=== PATIENT | male | born 1985 | race Caucasian/White ===

== ENCOUNTER 2016-06-30 16:50 | Emergency (ER) | payer OTHER ==
[2016-06-30 18:01] VITALS: BP 127/78
--- NOTE | 2016-06-30 19:05 | EDM.PDOC ---
ED HPI Trauma - General Chief Complaint: Upper Extremity Injury/Pain Stated Complaint: L SHOULDER INJURY Time Seen by Provider: 06/30/16 17:52 Source: Reports: Patient History Limitations: Reports: No limitations - History of Present Illness INITIAL COMMENTS - FREE TEXT/NARRATIVE: The patient presents with left shoulder pain. He got bucked off of his horse today. He did not hit his head and he did not hurt his neck. He has no chest pain or abdominal pain. He has no pelvic or leg pain. Occurred When: just prior to arrival Occurred Where: home Method of Injury: fall (Bucked off of his horse) Severity: moderate Pain/Injury Location: Reports: upper extremity, left (shoulder) Consciousness: Reports: no loss of consciousness Associated Symptoms: Reports: no other symptoms Allergies/ADRs: Allergies No Known Allergies Allergy (Verified 07/09/14 18:59) Home Medications: Ambulatory Orders Hydrocodone/Acetaminophen [Hydrocodon-Acetaminophen 5-325] 1 - 2 each PO Q6HR PRN #20 tablet 06/30/16 Past Medical History - Past Health History Medical/Surgical History: Denies Medical/Surgical History Social & Family History - Tobacco Use Smoking Status *Q: Never Smoker Years of Tobacco use: 8 Used Tobacco, but Quit: Yes Month Tobacco Last Used: march Second Hand Smoke Exposure: No - Caffeine Use Caffeine Use: Reports: Soda - Alcohol Use Days Per Week of Alcohol Use: 0 Number of Drinks Per Day: 4 Total Drinks Per Week: 0 - Recreational Drug Use Recreational Drug Use: No Review of Systems - Review of Systems Review Of Systems: See Below Constitutional: Reports: no symptoms Eyes: Reports: no symptoms Ears: Reports: no symptoms Nose: Reports: no symptoms Mouth/Throat: Reports: no symptoms Respiratory: Reports: No Symptoms Cardiovascular: Reports: no symptoms GI/Abdominal: Reports: No symptoms Genitourinary: Reports: no symptoms Musculoskeletal: Reports: other (Left shoulder pain) Skin: Reports: no symptoms Neurological: Reports: No Symptoms Trauma Exam - Physical Exam Exam: See Below Exam Limited By: No limitations General Appearance: Reports: alert, no apparent distress Head: Reports: atraumatic, normocephalic Ears: Reports: normal external exam Nose: Reports: normal inspection Neck: Reports: non-tender, normal alignment, normal inspection Respiratory Exam: Reports: no respiratory distress, lungs clear, normal breath sounds Cardiovascular: Reports: regular rate, rhythm, no edema, no murmur GI/Abdominal: Reports: soft, non tender, no organomegaly Extremities: Reports: other (Pain upon palpation and crepitus to the mid clavicle. Good sensation and pulses distally) Neurologic: Reports: no motor/sensory deficits, alert, oriented x 3 Course - Vital Signs Last Recorded V/S: Last Vital Signs Temp 97.2 F 06/30/16 17:59 Pulse 84 06/30/16 17:59 Resp 20 06/30/16 17:59 BP 127/78 06/30/16 17:59 Pulse Ox 97 06/30/16 17:59 - Orders/Labs/Meds Orders: Active Orders 24 hr Category Date Time Status CXR [Chest 2V] [CR] Stat Exams 06/30/16 17:55 Taken Clavicle Lt [CR] Stat Exams 06/30/16 17:55 Taken - Re-Assessments/Exams Free Text/Narrative Re-Assessment/Exam: 06/30/16 19:03 The CXR shows a left clavicle fracture but no rib injury and no pneumothorax. His clavicle x-ray shows a mid clavicle fracture with some displacement. I will get him in a sling and have him follow up with Dr Dixon. Departure - Departure Time of Disposition: 19:05 Disposition: Home, Self-Care 01 Condition: good Clinical Impression: Fracture of clavicle Qualifiers: Encounter type: initial encounter Clavicle location: shaft Fracture type: closed Fracture alignment: displaced Laterality: left Qualified Code(s): S42.022A - Displaced fracture of shaft of left clavicle, initial encounter for closed fracture Prescriptions: Hydrocodone/Acetaminophen [Hydrocodon-Acetaminophen 5-325] 1 - 2 each PO Q6HR PRN #20 tablet PRN Reason: Pain Referrals: Arvind Dixon MD [Physician] - 1 Week Forms: ED Department Discharge Additional Instructions: Ice your clavicle for 15 minutes every other hour while awake for 2 days. Wear the sling for comfort and follow up with Dr Dixon within 1 week. - My Orders Last 24 Hours: My Active Orders 06/30/16 17:55 CXR [Chest 2V] [CR] Stat Clavicle Lt [CR] Stat - Assessment/Plan Last 24 Hours: My Active Orders 06/30/16 17:55 CXR [Chest 2V] [CR] Stat Clavicle Lt [CR] Stat
--- NOTE | 2016-07-01 10:28 | CR ---
Left clavicle: Two views of the left clavicle were obtained. Comparison: No previous study. Slightly comminuted mid left clavicle fracture noted. Mild foreshortening is seen with displacement by over a shaft width. Acromioclavicular joint appears within normal limits. No additional bony abnormality is appreciated. Impression: 1. Left clavicle fracture as described above. Diagnostic code #3
--- NOTE | 2016-07-01 10:29 | CR ---
Chest: Two views of the chest were obtained. Comparison: No previous chest x-ray. Left clavicle fracture again noted. Other visualized bony structures are intact. Heart size and mediastinum are normal. Lungs are clear. No pneumothorax is seen. Impression: 1. Left clavicle fracture. 2. Two-view chest x-ray is otherwise unremarkable. Diagnostic code #3
== END 2016-06-30 19:10 | disposition home or self-care (01) ==
LOC: JD.ED 16:50
DX: S42.022A Displaced fracture of shaft of left clavicle, initial encounter for closed fracture (principal); V80.010A Animal-rider injured by fall from or being thrown from horse in noncollision accident, initial encounter; Y92.009 Unspecified place in unspecified non-institutional (private) residence as the place of occurrence of the external cause
CPT/HCPCS: 71020; 71020-26; 73000-26-LT; 73000-LT; 99283

== ENCOUNTER → 2016-07-04 | Day surgery (SDC) | payer OTHER ==
[~2016-07-04] MED LIST: Acetaminophen/HYDROcodone 325-5 MG Tab PO ONE; Dexamethasone 4 MG/ML SDV ONE; HYDROmorphone 0.5 MG/0.5 ML Syringe IVPUSH PRN; HYDROmorphone 1 MG/ML Syringe ONE; Lactated Ringers 1,000 ML IV SCH; Lactated Ringers 1,000 ML ONE; Lidocaine 1% 6 ML ONE; Lidocaine 1%/Sod Bicarbonate in NS 8.4% 1 ML Syringe PRN; Midazolam 1 MG/ML 2 ML SDV ONE; Neostigmine Methylsulfate 1 MG/ML 5 ML Syringe ONE; Ondansetron 4 MG/2 ML SDV IVPUSH PRN; Ondansetron 4 MG/2 ML SDV ONE; Propofol 200 MG/20 ML SDV ONE; Rocuronium 50 MG/5 ML Vial ONE; Sodium Chloride 0.9% 10 ML Syringe FLUSH PRN; ceFAZolin 1 GM Vial ONE; fentaNYL 100 MCG/2 ML SDV IVPUSH PRN; fentaNYL 250 MCG/5 ML SDV ONE
--- NOTE | 2016-07-04 08:08 | PCM.PREANE ---
Preanesthetic Assessment - Physical Assessment Height: 1.83 m Weight: 113.398 kg - Lab Values: Laboratory Last Values WBC 7.51 K/mm3 (4.23-9.07) 07/02/16 14:15 RBC 5.38 M/mm3 (4.63-6.08) 07/02/16 14:15 Hgb 15.9 gm/L (13.7-17.5) 07/02/16 14:15 Hct 46.1 % (40.1-51.0) 07/02/16 14:15 MCV 85.7 fl (79.0-92.2) 07/02/16 14:15 MCH 29.6 pg (25.7-32.2) 07/02/16 14:15 MCHC 34.5 g/dl (32.2-35.5) 07/02/16 14:15 RDW Std Deviation 40.2 fL (35.1-43.9) 07/02/16 14:15 Plt Count 224 K/mm3 (163-337) 07/02/16 14:15 MPV 9.1 fl (9.4-12.3) L 07/02/16 14:15 Neut % (Auto) 62.6 % (34.0-67.9) 07/02/16 14:15 Lymph % (Auto) 25.0 % (21.8-53.1) 07/02/16 14:15 Stephens % (Auto) 7.7 % (5.3-12.2) 07/02/16 14:15 Eos % (Auto) 4.1 (0.8-7.0) 07/02/16 14:15 Baso % (Auto) 0.5 % (0.1-1.2) 07/02/16 14:15 Neut # 4.69 K/mm3 (1.78-5.38) 07/02/16 14:15 Lymph # 1.88 K/mm3 (1.32-3.57) 07/02/16 14:15 Stephens # 0.58 K/mm3 (0.30-0.82) 07/02/16 14:15 Eos # 0.31 K/mm3 (0.04-0.54) 07/02/16 14:15 Baso # 0.04 K/mm3 (0.01-0.08) 07/02/16 14:15 Sodium 140 mEq/L (136-145) 07/02/16 14:15 Potassium 3.8 mEq/L (3.5-5.1) 07/02/16 14:15 Chloride 104 mEq/L (98-107) 07/02/16 14:15 Carbon Dioxide 29 mEq/L (21-32) 07/02/16 14:15 Anion Gap 10.8 (5-15) 07/02/16 14:15 BUN 11 mg/dL (7-18) 07/02/16 14:15 Creatinine 0.9 mg/dL (0.7-1.3) 07/02/16 14:15 Est Cr Clr Drug Dosing 132.93 mL/min 07/02/16 14:15 Estimated GFR (MDRD) > 60 mL/min (>60) 07/02/16 14:15 BUN/Creatinine Ratio 12.2 (14-18) L 07/02/16 14:15 Glucose 106 mg/dL (74-106) 07/02/16 14:15 Calcium 8.9 mg/dL (8.5-10.1) 07/02/16 14:15 MRSA (PCR) Negative 07/02/16 14:15 - Allergies Allergies/Adverse Reactions: Allergies Allergy/AdvReac Type Severity Reaction Status Date / Time No Known Allergies Allergy Verified 07/03/16 15:12 PreAnesthesia Questionnaire - Past Health History Medical/Surgical History: Denies Medical/Surgical History HEENT History: Reports: Impaired vision, Other (see below) Other HEENT History: glasses - SUBSTANCE USE Smoking Status *Q: Never Smoker Second Hand Smoke Exposure: No Days Per Week of Alcohol Use: 7 Number of Drinks Per Day: 4 Total Drinks Per Week: 28 Recreational Drug Use History: No - HOME MEDS Home Medications: Home Meds Hydrocodone/Acetaminophen [Hydrocodon-Acetaminophen 5-325] 1 - 2 each PO Q6HR PRN #40 tablet 07/04/16 [Rx] - CURRENT (IN HOUSE) MEDS Current Meds: Current Medications Lactated Ringer's (Ringers, Lactated) 1,000 mls @ 125 mls/hr IV ASDIRECTED HODA Stop: 07/04/16 23:00 Lidocaine/Sodium Bicarbonate (Buffered Lidocaine 1% In Ns 8.4%) 0.25 ml .XX ONETIME PRN PRN Reason: Prior to IV Start Stop: 07/04/16 18:00 Sodium Chloride (Saline Flush) 10 ml FLUSH ASDIRECTED PRN PRN Reason: Keep Vein Open Stop: 07/04/16 18:00 Preanesthetic Assessment - ANESTHESIA/TRANSFUSION/FAMILY HX Anesthesia/Transfusion History: No Prior Transfusion(s), Prior Anesthesia Type of Anesthesia Reaction: Denies: Allergy, Anesthesia Awareness, Excessive Somnolence, Excessive Nausea/Vomiting, Excessive Itching, Excessive Shivering, Malignant Hyperthermia, Malignant Hyperthermia, Family History, Pseudocholinesterase Deficiency, Pseudocholinesterase Deficiency, Family History of, Urinary Retention, Unknown, Other (see below) Family History of Anesthesia Reaction: No Intubation History: Unknown - REVIEW OF SYSTEMS Constitutional: Reports: no symptoms 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 Respiratory: Reports: no symptoms (quit smoking in 2012) Cardiovascular: Reports: no symptoms GI: Reports: no symptoms Other: Reports: Easy Bruising - PHYSICAL ASSESSMENT HR: 85 O2 Sat by Pulse Oximetry: 97 RR: 16 BP: 150/84 Temp: 37.4 C Height: 1.83 m Weight: 115.212 kg NPO Status Date: 07/03/16 NPO Status Time: 22:30 ASA Class: 1 Mental Status: Alert & Oriented x3 Airway Class: Mallampati = 3 Dentition: Reports: Normal Dentition, Caries Thyro-Mental Finger Breadths: 3 Mouth Opening Finger Breadths: 3 ROM/Head Extension: Full Respiratory Status: lungs clear to auscultation bilaterally Cardiovascular Status: regular rate & rhythm, normal S1, S2, no murmur - LAB Values: Laboratory Last Values WBC 7.51 K/mm3 (4.23-9.07) 07/02/16 14:15 RBC 5.38 M/mm3 (4.63-6.08) 07/02/16 14:15 Hgb 15.9 gm/L (13.7-17.5) 07/02/16 14:15 Hct 46.1 % (40.1-51.0) 07/02/16 14:15 MCV 85.7 fl (79.0-92.2) 07/02/16 14:15 MCH 29.6 pg (25.7-32.2) 07/02/16 14:15 MCHC 34.5 g/dl (32.2-35.5) 07/02/16 14:15 RDW Std Deviation 40.2 fL (35.1-43.9) 07/02/16 14:15 Plt Count 224 K/mm3 (163-337) 07/02/16 14:15 MPV 9.1 fl (9.4-12.3) L 07/02/16 14:15 Neut % (Auto) 62.6 % (34.0-67.9) 07/02/16 14:15 Lymph % (Auto) 25.0 % (21.8-53.1) 07/02/16 14:15 Stephens % (Auto) 7.7 % (5.3-12.2) 07/02/16 14:15 Eos % (Auto) 4.1 (0.8-7.0) 07/02/16 14:15 Baso % (Auto) 0.5 % (0.1-1.2) 07/02/16 14:15 Neut # 4.69 K/mm3 (1.78-5.38) 07/02/16 14:15 Lymph # 1.88 K/mm3 (1.32-3.57) 07/02/16 14:15 Stephens # 0.58 K/mm3 (0.30-0.82) 07/02/16 14:15 Eos # 0.31 K/mm3 (0.04-0.54) 07/02/16 14:15 Baso # 0.04 K/mm3 (0.01-0.08) 07/02/16 14:15 Sodium 140 mEq/L (136-145) 07/02/16 14:15 Potassium 3.8 mEq/L (3.5-5.1) 07/02/16 14:15 Chloride 104 mEq/L (98-107) 07/02/16 14:15 Carbon Dioxide 29 mEq/L (21-32) 07/02/16 14:15 Anion Gap 10.8 (5-15) 07/02/16 14:15 BUN 11 mg/dL (7-18) 07/02/16 14:15 Creatinine 0.9 mg/dL (0.7-1.3) 07/02/16 14:15 Est Cr Clr Drug Dosing 132.93 mL/min 07/02/16 14:15 Estimated GFR (MDRD) > 60 mL/min (>60) 07/02/16 14:15 BUN/Creatinine Ratio 12.2 (14-18) L 07/02/16 14:15 Glucose 106 mg/dL (74-106) 07/02/16 14:15 Calcium 8.9 mg/dL (8.5-10.1) 07/02/16 14:15 MRSA (PCR) Negative 07/02/16 14:15 Reviewed and noted. - IMAGING/EKG Impressions: CXR: fractured left clavicle noted/lungs clear - ALLERGIES Allergies/Adverse Reactions: Allergies Allergy/AdvReac Type Severity Reaction Status Date / Time No Known Allergies Allergy Verified 07/03/16 15:12 - ANESTHESIA PLAN Preop Beta Morelia: No Anesthesia Type Planned: General Anesthesia - ACKNOWLEDGEMENTS Pt an Appropriate Candidate for the Planned Anesthesia: Yes Alternatives and Risks of Anesthesia Discussed w Pt/Guardian: Yes Pt/Guardian Understands and Agrees with Anesthesia Plan: Yes
[2016-07-04] MEDS: Bupivacaine 0.25% 30 ML SDV ONE ×2 (11:42→12:10)
--- NOTE | 2016-07-04 12:56 | PCM.POSTAN ---
POST ANESTHESIA ASSESSMENT - MENTAL STATUS Mental Status: alert - VITAL SIGNS Pulse Rate: 85 SaO2: 93 Resp Rate: 20 Blood Pressure: 162/70 Temperature: 37.2 C - RESPIRATORY Respiratory Status: respiratory rate WNL, airway patent, O2 saturation stable, supplemental oxygen - CARDIOVASCULAR CV Status: pulse rate WNL, blood pressure stable - GASTROINTESTINAL GI Status: no symptoms - POST OP HYDRATION Hydration Status: adequate & stable
--- NOTE | 2016-07-04 13:20 | PCM48HPAN ---
Post Anesthesia Note - EVALUATION WITHIN 48HRS OF ANESTHETIC Vital Signs in Normal Range: Yes Patient Participated in Evaluation: Yes Respiratory Function Stable: Yes Airway Patent: Yes Cardiovascular Function Stable: Yes Hydration Status Stable: Yes Pain Control Satisfactory: Yes Nausea and Vomiting Control Satisfactory: Yes Mental Status Recovered: Yes
--- NOTE | 2016-07-04 14:28 | CR ---
Left clavicle: Seven fluoroscopic spot views were obtained utilizing C-arm device of the left clavicle. Study shows reduction and fixation of left clavicle fracture with plate and screws. Final position of the fracture appears anatomic. Fluoroscopy time given is 10.2 seconds. Impression: 1. Reduction and fixation of previous left clavicle fracture. Diagnostic code #2
[2016-07-04 14:30] VITALS: BP 159/86
--- NOTE | 2016-07-09 11:49 | PCM.OPNOTE ---
- General Post-Op/Procedure Note Date of Surgery/Procedure: 07/04/16 Operative Procedure(s): open reduction internal fixation of left clavicle shaft fracture Pre Op Diagnosis: left clavicle shaft fracture Post-Op Diagnosis: Same Anesthesia Technique: General ET tube, Local Primary Surgeon: Arvind Dixon Anesthesia Provider: Juanis Shoemaker Building Maintenance Engineer: Becca Verduzco EBLaureen in mLs: 25 Complications: None Condition: Good
--- NOTE | 2016-07-09 12:45 | OR ---
DATE OF OPERATION: 07/04/2016 SURGEON: Arvind Dixon MD OPERATION PERFORMED: Open reduction and internal fixation of left clavicle shaft fracture. PREOPERATIVE DIAGNOSIS: Left clavicle shaft fracture. POSTOPERATIVE DIAGNOSIS: Left clavicle shaft fracture. ANESTHESIA: General endotracheal intubation with local. ANESTHESIA PROVIDER: Juanis Shoemaker CRNA. PRODUCT GRADER: Becca Verduzco PA-C. ESTIMATED BLOOD LOSS: 25 mL. COMPLICATIONS: None. CONDITION: Stable. DESCRIPTION OF PROCEDURE: The patient was identified in the preop holding area. Proper site was marked and identified by the surgeon. The patient was taken back to the operating theater, where after adequate anesthesia, the patient's left upper extremity was sterilely prepped and draped in the usual sterile fashion. OR time-out was performed. The patient received 2 g IV Ancef. At this time, the fracture site was identified and using C-arm fluoroscopy, incision was made and centered over the clavicle fracture. Incision was made all the way down to the fracture site. Butterfly fragment was identified and the fracture site was curetted and rongeured of all fractured hematoma. At this time, the butterfly fragment was lagged to the lateral piece using a 2/7 nonlocking screw and lag by technique. At this time, the 2 main pieces were then reduced using [id number] clamps. A Reema bridging the superior clavicle plate was then placed and was found to be in good position on both AP and oblique views of the clavicle. At this time, a nonlocking screws to adhere the plate to the bone was applied both medially and laterally. Two locking screws were then placed, 1 lateral and 1 medial, and then another 2 nonlocking 3.5 cortical screws were placed both medial and lateral. C-arm fluoroscopy showed all the screws to be in good position and the plate was in good position and the fracture site was reduced. At this time, adequate saline was irrigated through the wound and 0 Vicryl was used for closure of the platysma and fascia level. A 2-0 Vicryl was used subcutaneously, and Prineo was used for the skin. The patient tolerated the procedure well and sent to PACU in stable condition. MMODAL /[id number]
== END | disposition home or self-care (01) ==
LOC: JD.SDS 08:43
PROVIDERS: ATTEND Orthopaedic Surgery
PROC: 0P8 Upper Bones, Division (ICD-10-PCS; principal; 2016-07-04)
DX: S42.022A Displaced fracture of shaft of left clavicle, initial encounter for closed fracture (principal); V80.010A Animal-rider injured by fall from or being thrown from horse in noncollision accident, initial encounter; Y93.52 Activity, horseback riding; Y92.9 Unspecified place or not applicable; Y99.9 Unspecified external cause status; Z87.891 Personal history of nicotine dependence
CPT/HCPCS: 23515; 36415; 76000; 80048; 85025; 87641; A9270; C1713; J0690; J1100; J1170; J2250; J2405; J2710; J3010; J7120; 00450; J2704; J3490

== ENCOUNTER 2019-06-15 11:12 | Emergency (ER) | payer OTHER ==
[2019-06-15 11:19] VITALS: BP 167/89; PULSE 100
[2019-06-15] MEDS ORDERED: Sodium Chloride 0.9% 10 ML Syringe FLUSH PRN (11:48)
--- NOTE | 2019-06-15 11:59 | EDM.PDOC ---
ED HPI GENERAL MEDICAL PROBLEM - General Chief Complaint: Chest Pain Stated Complaint: CHEST PAIN Time Seen by Provider: 06/15/19 11:39 Source of Information: Reports: Patient, RN Notes Reviewed History Limitations: Reports: No Limitations - History of Present Illness INITIAL COMMENTS - FREE TEXT/NARRATIVE: Patient is a 34-year-old male who presents to the ED for the evaluation of some midsternal chest pain. The patient notes this started around 1 hour ago. He states that he has not felt any pain or symptoms like this before. 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 He also felt his heart racing at this time and had a little bit of shortness of breath. Patient states he has not had any sicknesses prior to this. Patient did complain of some mild left arm tingling with the chest pain episode. He is not complaining of any chest pain at this time. He notes that he did have a good breakfast this morning, and also did not have any caffeine this morning. He is not on any regular medications. He is not having any nausea or vomiting, headache, otherwise. He has no primary care provider. He states that his father has had a previous heart attack, and is still living, and he thinks that maybe he was in his 40s when this happened. Chest Pain Score (Numeric/FACES): 7 - Related Data Allergies Allergy/AdvReac Type Severity Reaction Status Date / Time No Known Allergies Allergy Verified 06/15/19 11:19 Home Meds: Home Meds . [No Known Home Meds] 06/15/19 [History] Past Medical History - Past Health History Medical/Surgical History: Denies Medical/Surgical History HEENT History: Reports: Impaired Vision, Other (See Below) Other HEENT History: glasses Social & Family History - Tobacco Use Smoking Status *Q: Former Smoker Used Tobacco, but Quit: Yes Month/Year Tobacco Last Used: 2011 - Caffeine Use Caffeine Use: Reports: None, Soda - Recreational Drug Use Recreational Drug Use: No ED ROS GENERAL - Review of Systems Review Of Systems: See Below Constitutional: Denies: Fever, Chills Respiratory: Reports: Shortness of Breath Cardiovascular: Reports: Chest Pain (mid sternal CP), Palpitations. Denies: Blood Pressure Problem GI/Abdominal: Denies: Abdominal Pain, Nausea, Vomiting Musculoskeletal: Denies: Arm Pain Neurological: Reports: Tingling (left arm tingling) ED EXAM, GENERAL - Physical Exam Exam: See Below Exam Limited By: No Limitations General Appearance: Alert, WD/WN, No Apparent Distress Eye Exam: Bilateral Eye: EOMI, Normal Inspection, PERRL Ears: Normal External Exam Nose: Normal Inspection Throat/Mouth: Normal Inspection, Normal Lips, Normal Teeth, Normal Gums, Normal Oropharynx, Normal Voice, No Airway Compromise Head: Atraumatic, Normocephalic Neck: Normal Inspection Respiratory/Chest: No Respiratory Distress, Lungs Clear, Normal Breath Sounds, No Accessory Muscle Use, Chest Non-Tender Cardiovascular: Normal Peripheral Pulses, Regular Rate, Rhythm, No Murmur Peripheral Pulses: 3+: Radial (L), Radial (R) GI/Abdominal: Normal Bowel Sounds, Soft, Non-Tender, No Distention, No Mass Extremities: Normal Inspection, Normal Capillary Refill Neurological: Alert, Oriented, Normal Cognition, No Motor/Sensory Deficits Psychiatric: Normal Affect, Normal Mood Skin Exam: Warm, Dry, Intact, Normal Color, No Rash EKG INTERPRETATION EKG Date: 06/15/19 Time: 11:17 Rhythm: NSR Rate (Beats/Min): 97 [place]: LAD-Left [place] Deviation (-29) P-Wave: Present QRS: Normal ST-T: Normal QT: Normal Comparison: NA - No Prior EKG EKG Interpretation Comments: No acute ischemic changes noted. Reviewed by Dr. Browning and myself. Course - Vital Signs Last Recorded V/S: Last Vital Signs Temp 97.5 F 06/15/19 11:16 Pulse 100 06/15/19 11:16 Resp 16 06/15/19 11:16 BP 167/89 H 06/15/19 11:16 Pulse Ox 93 L 06/15/19 11:16 - Orders/Labs/Meds Orders: Active Orders 24 hr Category Date Time Status EKG Documentation Completion [RC] ASDIRECTED Care 06/15/19 11:31 Active Peripheral IV Care [RC] . DIRECTED Care 06/15/19 11:49 Ordered Chest 1V Frontal [CR] Stat Exams 06/15/19 11:49 Ordered Sodium Chloride 0.9% [Saline Flush] Med 06/15/19 11:48 Ordered 10 ml FLUSH ASDIRECTED PRN Peripheral IV Insertion Adult [OM.PC] Stat Oth 06/15/19 11:48 Ordered EKG 12 Lead [EK] Stat Ther 06/15/19 11:31 Ordered Medication Orders Sodium Chloride (Saline Flush) 10 ml FLUSH ASDIRECTED PRN PRN Reason: Keep Vein Open Last Admin: 06/15/19 11:30 Dose: 10 ml Labs: Laboratory Tests 06/15/19 06/15/19 06/15/19 Range/Units 12:15 12:15 12:18 WBC 6.55 (4.23-9.07) K/mm3 RBC 5.61 (4.63-6.08) M/mm3 Hgb 16.7 (13.7-17.5) gm/dl Hct 48.1 (40.1-51.0) % MCV 85.7 (79.0-92.2) fl MCH 29.8 (25.7-32.2) pg MCHC 34.7 (32.2-35.5) g/dl RDW Std Deviation 39.9 (35.1-43.9) fL Plt Count 262 (163-337) K/mm3 MPV 8.7 L (9.4-12.3) fl Neutrophils % (Manual) 61 H (40-60) % Band Neutrophils % 0 (0-10) % Lymphocytes % (Manual) 25 (20-40) % Atypical Lymphs % 0 % Monocytes % (Manual) 9 (2-10) % Eosinophils % (Manual) 5 (0.8-7.0) % Basophils % (Manual) 0 L (0.2-1.2) Platelet Estimate Adequate RBC Morph Comment Normal PT 10.6 (9.7-12.0) SECONDS INR 0.97 APTT 27 (22-31) SECONDS Sodium 141 (136-145) mEq/L Potassium 3.8 (3.5-5.1) mEq/L Chloride 103 (98-107) mEq/L Carbon Dioxide 25 (21-32) mEq/L Anion Gap 16.8 H (5-15) BUN 13 (7-18) mg/dL Creatinine 0.9 (0.7-1.3) mg/dL Est Cr Clr Drug Dosing 129.33 mL/min Estimated GFR (MDRD) > 60 (>60) mL/min BUN/Creatinine Ratio 14.4 (14-18) Glucose 116 H (74-106) mg/dL Calcium 9.1 (8.5-10.1) mg/dL Magnesium 1.9 (1.8-2.4) mg/dl Total Bilirubin 0.5 (0.2-1.0) mg/dL AST 22 (15-37) U/L ALT 50 (16-63) U/L Alkaline Phosphatase 82 (46-116) U/L Troponin I < 0.017 (0.00-0.056) ng/mL NT-Pro-B Natriuret Pep (0-125) pg/mL Total Protein 7.9 (6.4-8.2) g/dl Albumin 3.8 (3.4-5.0) g/dl Globulin 4.1 gm/dL Albumin/Globulin Ratio 0.9 L (1-2) 06/15/19 Range/Units 12:18 WBC (4.23-9.07) K/mm3 RBC (4.63-6.08) M/mm3 Hgb (13.7-17.5) gm/dl Hct (40.1-51.0) % MCV (79.0-92.2) fl MCH (25.7-32.2) pg MCHC (32.2-35.5) g/dl RDW Std Deviation (35.1-43.9) fL Plt Count (163-337) K/mm3 MPV (9.4-12.3) fl Neutrophils % (Manual) (40-60) % Band Neutrophils % (0-10) % Lymphocytes % (Manual) (20-40) % Atypical Lymphs % % Monocytes % (Manual) (2-10) % Eosinophils % (Manual) (0.8-7.0) % Basophils % (Manual) (0.2-1.2) Platelet Estimate RBC Morph Comment PT (9.7-12.0) SECONDS INR APTT (22-31) SECONDS Sodium (136-145) mEq/L Potassium (3.5-5.1) mEq/L Chloride (98-107) mEq/L Carbon Dioxide (21-32) mEq/L Anion Gap (5-15) BUN (7-18) mg/dL Creatinine (0.7-1.3) mg/dL Est Cr Clr Drug Dosing mL/min Estimated GFR (MDRD) (>60) mL/min BUN/Creatinine Ratio (14-18) Glucose (74-106) mg/dL Calcium (8.5-10.1) mg/dL Magnesium (1.8-2.4) mg/dl Total Bilirubin (0.2-1.0) mg/dL AST (15-37) U/L ALT (16-63) U/L Alkaline Phosphatase (46-116) U/L Troponin I (0.00-0.056) ng/mL NT-Pro-B Natriuret Pep 5 (0-125) pg/mL Total Protein (6.4-8.2) g/dl Albumin (3.4-5.0) g/dl Globulin gm/dL Albumin/Globulin Ratio (1-2) Meds: Medications Generic Name Dose Route Start Last Admin Trade Name Freq PRN Reason Stop Dose Admin Sodium Chloride 10 ml 06/15/19 11:48 06/15/19 11:30 Saline Flush FLUSH 10 ml ASDIRECTED PRN Administration Keep Vein Open - Re-Assessments/Exams Free Text/Narrative Re-Assessment/Exam: 06/15/19 12:00 Patient presents to the ED for sudden onset midsternal chest pain. Will order some labs to rule out any cardiac etiology. Patient's EKG shows no sign of acute ischemia at this time. This was reviewed by Dr. Browning and myself. 06/15/19 13:08 Laboratory evaluation demonstrates normal major abnormalities. EKG also demonstrated no acute sign of ischemia, troponin is negative. At this time I will discharge the patient home with general recommendations have him follow-up with a primary care provider of choice. Departure - Departure Time of Disposition: 13:10 Disposition: Home, Self-Care 01 Condition: Fair Clinical Impression: Atypical chest pain Instructions: Nonspecific Chest Pain, [id number] Referrals: Elizabeth Velasquez NP [Nurse Practitioner] - 06/25/19 (f/u holter monitor) Forms: ED Department Discharge Additional Instructions: You were evaluated in the ER today regarding your sudden onset chest pain. Your cardiac work-up at today's visit is within normal limits, there is no sign of any sort of heart attack at this ER visit. Other laboratory evaluation is within normal limits, there is no sign of any infection or metabolic abnormalities. You are being sent home with a 48-hour Holter monitor, please wear continuously for the next 48 hours and follow-up with Clare Velasquez in our clinic, please call [phone] to make an appointment, sometime mid-to-late next week for follow-up of the Holter monitor results. Please return to the ER if your symptoms change or worsen. Sepsis Event Note - Evaluation Sepsis Screening Result: No Definite Risk - Focused Exam Vital Signs: Vital Signs Temp Pulse Resp BP Pulse Ox 06/15/19 11:16 97.5 F 100 16 167/89 H 93 L Date Exam was Performed: 06/15/19 Time Exam was Performed: 13:08 - My Orders Last 24 Hours: My Active Orders 06/15/19 11:31 EKG Documentation Completion [RC] ASDIRECTED EKG 12 Lead [EK] Stat 06/15/19 11:48 Sodium Chloride 0.9% [Saline Flush] 10 ml FLUSH ASDIRECTED PRN Peripheral IV Insertion Adult [OM.PC] Stat 06/15/19 11:49 Peripheral IV Care [RC] . DIRECTED Chest 1V Frontal [CR] Stat - Assessment/Plan Last 24 Hours: My Active Orders 06/15/19 11:31 EKG Documentation Completion [RC] ASDIRECTED EKG 12 Lead [EK] Stat 06/15/19 11:48 Sodium Chloride 0.9% [Saline Flush] 10 ml FLUSH ASDIRECTED PRN Peripheral IV Insertion Adult [OM.PC] Stat 06/15/19 11:49 Peripheral IV Care [RC] . DIRECTED Chest 1V Frontal [CR] Stat
--- NOTE | 2019-06-15 13:25 | CR ---
Chest: Portable view of the chest was obtained. Comparison: Prior chest x-ray of 06/30/16. Heart size and mediastinum are within normal limits for portable technique. Lungs are clear with no acute parenchymal change. Plate and screws are noted affixing old clavicle fracture. Impression: 1. Nothing acute is appreciated on portable chest x-ray. Diagnostic code #2 Study was dictated in [place] Standard Time
== END 2019-06-15 13:29 | disposition home or self-care (01) ==
LOC: JD.ED 11:12
DX: R07.2 Precordial pain (principal); Z87.891 Personal history of nicotine dependence
CPT/HCPCS: 36415; 71045; 71045-26; 80053; 83735; 83880; 84484; 85007; 85027; 85610; 85730; 93005; 93010; 93225; 93226; 99284; 99285-25

== ENCOUNTER 2024-03-10 13:04 | Emergency (ER) | payer BC, OTHER ==
[2024-03-10] MEDS ORDERED: Sodium Chloride 0.9% 10 ML Syringe FLUSH PRN (13:32)
[2024-03-10] MEDS: Meclizine 25 MG Tab PO ONE (13:52)
[2024-03-10] MEDS: Iopamidol 755 Mg/ML 100 ML Bottle IVPUSH ONE (14:11)
[2024-03-10] MEDS: Sodium Chloride 0.9% 100 ML IV SCH (14:11)
[2024-03-10] MEDS: Sodium Chloride 0.9% 10 ML Syringe FLUSH ONE (14:11)
[2024-03-10 14:18] LABS: BASOPHILS PERCENT AUTO 0.7 % (0.0-1.0); EOSINOPHILS ABSOLUTE AUTO 0.2 K/mm3 (0.0-0.4); EOSINOPHILS PERCENT AUTO 3.1 % (0.0-6.0); HEMATOCRIT 49.9 % (42.0-52.0); HEMOGLOBIN 17.3 gm/dl (14.0-18.0); IMMATURE GRAN ABSOLUTE AUTO 0.02 K/mm3 (0.00-0.05); IMMATURE GRAN PERCENT AUTO 0.3 % (0.0-0.4); LYMPHOCYTES ABSOLUTE AUTO 1.6 K/mm3 (1.0-4.8); LYMPHOCYTES PERCENT AUTO 25.7 % (24.0-44.0); MEAN CORPUSCULAR HGB CONC 34.7 g/dl (32.0-36.0); MEAN CORPUSCULAR VOLUME 86.6 fl (83.0-99.0); MEAN PLATELET VOLUME 8.9 fl (9.4-12.4); MONOCYTES ABSOLUTE AUTO 0.4 K/mm3 (0.0-0.8); MONOCYTES PERCENT AUTO 7.1 % (0.0-8.0); NEUTROPHILS ABSOLUTE AUTO 3.8 K/mm3 (1.8-7.7); NEUTROPHILS PERCENT AUTO 63.1 % (41.0-71.0); PLATELET COUNT,PLT 242 K/mm3 (150-400); RED BLOOD CELL COUNT 5.76 M/mm3 (4.52-5.90); WHITE BLOOD CELL COUNT,WBC 6.08 K/mm3 (3.9-11.3)
[2024-03-10 14:33] LABS: A/G RATIO 0.9 (1-2); ALANINE AMINOTRANSFERASE,ALT 64 U/L (16-63); ALKALINE PHOSPHATASE 87 U/L (46-116); ANION GAP 11.9 (5-15); ASPARTATE AMNIOTRANSFERASE,AST 31 U/L (15-37); BILIRUBIN TOTAL 0.5 mg/dL (0.2-1.0); BLOOD UREA NITROGEN,BUN 11 mg/dL (7-18); CALCIUM 9.6 mg/dL (8.5-10.1); CARBON DIOXIDE,CO2 30 mEq/L (21-32); CHLORIDE,CL 102 mEq/L (98-107); EST CRCL DRUG DOSING (CG) 111.01 mL/min; ESTIMATED GFR 99 mL/min (>60); GLUCOSE RANDOM 96 mg/dL (70-99); MAGNESIUM 2.3 mg/dL (1.8-2.4); POTASSIUM,K 3.9 mEq/L (3.5-5.1); PROTEIN TOTAL,TP 8.3 g/dl (6.4-8.2); SODIUM,NA 140 mEq/L (136-145)
[2024-03-10 14:34] LABS: TROPONIN I HIGH SENSITIVITY < 4 pg/mL (<=76)
[2024-03-10 15:18] VITALS: BP 151/88; PULSE 76
== END 2024-03-10 15:31 | disposition home or self-care (01) ==
LOC: JD.ED 13:04
DX: R42 Dizziness and giddiness (principal); Z79.899 Other long term (current) drug therapy
CPT/HCPCS: 36415; 70450; 70450-26; 70496; 70496-26; 70498; 70498-26; 80053; 83735; 84484; 85025; 93005; 99284; A9270-GY; J3490; Q9967